=== PATIENT | female | born 1975 | race Caucasian/White ===

== ENCOUNTER 2019-03-26 11:28 | Emergency (ER) | payer OTHER ==
[2019-03-26] MEDS: LIDOCAINE 1% (MPF) 5 ML VIAL INFIL (12:11)
[2019-03-26] MEDS: DIAZEPAM 5 MG TAB PO (12:26)
== END 2019-03-26 13:34 | disposition home or self-care (01) ==
LOC: FTE 11:28
DX: N75.1 Abscess of Bartholin's gland (principal)
CPT/HCPCS: 56420; 82962; 99284-25

== ENCOUNTER 2019-04-04 11:30 | Emergency (ER) | payer OTHER ==
[2019-04-04] MEDS: KETOROLAC 60 MG INJ IM (12:47)
[2019-04-04] MEDS: DEXAMETHASONE 10 MG/ML 1 ML INJ IM (12:47)
== END 2019-04-04 13:35 | disposition home or self-care (01) ==
LOC: FTE 13:35
DX: M54.31 Sciatica, right side (principal); M54.32 Sciatica, left side
CPT/HCPCS: 81025; 82962; 96372; 99284-25

== ENCOUNTER 2019-04-05 19:43 | Inpatient (IN) | payer OTHER ==
[2019-04-05 22:34] LABS: ADD MAN DIFF? NO
[2019-04-05 22:36] LABS: BASOPHIL # 0.1 10^3/ul (0.0-0.1); BASOPHILS % 0.4 % (0.0-2.0); EOSINOPHILS % 0.1 % (0.0-7.0); HEMOGLOBIN 11.8 g/dl (12.0-16.0); LYMPHOCYTES # 3.2 10^3/ul (0.8-2.9); LYMPHOCYTES % 22.2 % (15.0-51.0); MEAN CORPUSCULAR HGB CONC 33.7 g/dl (32.0-37.0); MEAN CORPUSCULAR VOLUME 83.1 fl (82.0-101.0); MEAN PLATELET VOLUME 10.9 fl (7.4-10.4); MONOCYTE # 0.8 10^3/ul (0.3-0.9); MONOCYTES % 5.7 % (0.0-11.0); NEUTROPHIL # 10.3 10^3/ul (1.6-7.5); NEUTROPHILS % 70.8 % (39.0-77.0); PLATELET COUNT 223 10^3/UL (140-415); RED BLOOD COUNT 4.21 10^6/ul (4.20-5.40); RED CELL DISTRIBUTION WIDTH 13.7 % (11.5-14.5)
[2019-04-05 22:36] LABS: WHITE BLOOD COUNT 14.5 10^3/ul (4.8-10.8)
[2019-04-05 22:55] LABS: ANION GAP 8 (5-13); BLOOD UREA NITROGEN 19 mg/dl (7-20); CALCIUM 9.1 mg/dl (8.4-10.2); CARBON DIOXIDE 22 mmol/L (21-31); CHLORIDE 111 mmol/L (97-110); CREATININE 0.88 mg/dl (0.44-1.00); Estimated GFR > 60 mL/min (>60); GLUCOSE 118 mg/dl (70-220); INR 0.94; POTASSIUM 3.9 mmol/L (3.5-5.1); PROTIME 12.7 Sec (11.9-14.9); SODIUM 141 mmol/L (135-144)
[2019-04-05 23:06] LABS: TROPONIN-I < 0.012 ng/ml (0.000-0.120)
[2019-04-05] MEDS: morphine 4 MG/ML VIAL IV (23:11)
[2019-04-05] MEDS: DEXAMETHASONE 4 MG/ML 1 ML INJ IV (23:11)
[2019-04-05] MEDS: ONDANSETRON 4 MG INJ IV (23:11)
[2019-04-06] MEDS ORDERED: ONDANSETRON 4 MG INJ IV (07:00)
[2019-04-06] MEDS: DEXAMETHASONE 4 MG TAB PO ×4 (08:46→23:19)
[2019-04-06] MEDS: KETOROLAC 30 MG INJ IV (08:48)
[2019-04-06] MEDS: morphine 2 MG INJ IV ×5 (11:09→23:20)
[2019-04-06 12:58] LABS: ADD UMIC YES; UR ASCORBIC ACID NEGATIVE (NEGATIVE); UR BACTERIA FEW /HPF (NONE SEEN); UR BILIRUBIN (Dip) NEGATIVE (NEGATIVE); UR BLOOD (Dip) 1+ mg/dL (NEGATIVE); UR CLARITY CLOUDY (CLEAR); UR COLOR YELLOW (YELLOW); UR GLUCOSE (Dip) NEGATIVE (NEGATIVE); UR KETONES (Dip) NEGATIVE (NEGATIVE); UR LEUKOCYTE ESTERASE (Dip) 2+ Leu/ul (NEGATIVE); UR NITRITE (Dip) NEGATIVE (NEGATIVE); UR RBC 2 /HPF (0-5); UR SPECIFIC GRAVITY (Dip) 1.023 (1.003-1.030); UR SQUAMOUS EPITHELIAL CELL MODERATE /HPF (FEW); UR TOTAL PROTEIN (Dip) NEGATIVE (NEGATIVE); UR UROBILINOGEN (Dip) 1+ mg/dL (NEGATIVE); UR WBC 14 /HPF (0-5)
[2019-04-06 13:14] LABS: AMPHETAMINE/METHAMPHETAMINE Negative (NEGATIVE); BARBITURATES Negative (NEGATIVE); BENZODIAZEPINES Negative (NEGATIVE); CANNABINOIDS Negative (NEGATIVE); COCAINE Negative (NEGATIVE)
[2019-04-06 13:18] LABS: OPIATES Positive (NEGATIVE)
[2019-04-06 14:00] LABS: C-REACTIVE PROTEIN 0.7 mg/dl (0.0-0.9)
[2019-04-06 14:25] LABS: ERYTHROCYTE SEDIMENTATION RATE 10 mm/Hr (0-20)
[2019-04-06] MEDS: ACETAMINOPHEN 500 MG TAB PO (15:13)
[2019-04-06] MEDS: PANTOPRAZOLE (EC) 40 MG TAB PO (18:04)
[2019-04-07] MEDS: morphine 2 MG INJ IV ×7 (04:00→21:22)
[2019-04-07 05:37] LABS: ADD MAN DIFF? NO
[2019-04-07] MEDS: PANTOPRAZOLE (EC) 40 MG TAB PO (05:43)
[2019-04-07] MEDS: DEXAMETHASONE 4 MG TAB PO ×4 (05:43→23:54)
[2019-04-07 05:45] LABS: BASOPHILS % 0.1 % (0.0-2.0); HEMATOCRIT 36.7 % (37.0-47.0); HEMOGLOBIN 12.1 g/dl (12.0-16.0); LYMPHOCYTES # 1.3 10^3/ul (0.8-2.9); LYMPHOCYTES % 9.9 % (15.0-51.0); MEAN CORPUSCULAR HEMOGLOBIN 27.4 pg (29.0-33.0); MEAN PLATELET VOLUME 11.7 fl (7.4-10.4); MONOCYTE # 0.4 10^3/ul (0.3-0.9); NEUTROPHIL # 11.6 10^3/ul (1.6-7.5); PLATELET COUNT 224 10^3/UL (140-415); RED BLOOD COUNT 4.42 10^6/ul (4.20-5.40); RED CELL DISTRIBUTION WIDTH 13.6 % (11.5-14.5)
[2019-04-07 05:45] LABS: WHITE BLOOD COUNT 13.5 10^3/ul (4.8-10.8)
[2019-04-07 05:52] LABS: ALANINE AMINOTRANSFERASE 35 IU/L (13-69); ALBUMIN 3.8 g/dl (3.3-4.9); ALBUMIN/GLOBULIN RATIO 1.26; ALKALINE PHOSPHATASE 52 IU/L (42-121); ANION GAP 7 (5-13); ASPARTATE AMINO TRANSFERASE 22 IU/L (15-46); BILIRUBIN,INDIRECT 0.3 mg/dl (0-1.1); BILIRUBIN,TOTAL 0.3 mg/dl (0.2-1.3); BLOOD UREA NITROGEN 20 mg/dl (7-20); CALCIUM 9.3 mg/dl (8.4-10.2); CARBON DIOXIDE 25 mmol/L (21-31); CHLORIDE 108 mmol/L (97-110); CREATININE 0.88 mg/dl (0.44-1.00); Estimated GFR > 60 mL/min (>60); GLUCOSE 239 mg/dl (70-220); SODIUM 140 mmol/L (135-144); TOTAL PROTEIN 6.8 g/dl (6.1-8.1)
[2019-04-07 06:02] LABS: PHOSPHORUS 3.8 mg/dl (2.5-4.9)
[2019-04-07 06:02] LABS: MAGNESIUM 2.2 mg/dl (1.7-2.5)
[2019-04-07] MEDS: ACETAMINOPHEN 500 MG TAB PO ×2 (11:23→18:10)
[2019-04-07] MEDS: KETOROLAC 30 MG INJ IV (16:37)
[2019-04-07] MEDS: HEPARIN 5,000 UNIT/1 ML VIAL SC (21:05)
[2019-04-08] MEDS: morphine 2 MG INJ IV ×6 (02:15→16:38)
[2019-04-08] MEDS: DEXAMETHASONE 4 MG TAB PO (05:14)
[2019-04-08] MEDS: PANTOPRAZOLE (EC) 40 MG TAB PO (05:14)
[2019-04-08 07:40] LABS: ADD MAN DIFF? NO
[2019-04-08 07:46] LABS: WHITE BLOOD COUNT 14.9 10^3/ul (4.8-10.8)
[2019-04-08 07:46] LABS: BASOPHILS % 0.2 % (0.0-2.0); HEMATOCRIT 39.8 % (37.0-47.0); HEMOGLOBIN 13.3 g/dl (12.0-16.0); LYMPHOCYTES # 1.3 10^3/ul (0.8-2.9); LYMPHOCYTES % 8.9 % (15.0-51.0); MEAN CORPUSCULAR HEMOGLOBIN 27.8 pg (29.0-33.0); MEAN CORPUSCULAR HGB CONC 33.4 g/dl (32.0-37.0); MEAN CORPUSCULAR VOLUME 83.3 fl (82.0-101.0); MONOCYTE # 0.6 10^3/ul (0.3-0.9); MONOCYTES % 4.1 % (0.0-11.0); NEUTROPHIL # 12.7 10^3/ul (1.6-7.5); NEUTROPHILS % 84.9 % (39.0-77.0); PLATELET COUNT 226 10^3/UL (140-415); RED BLOOD COUNT 4.78 10^6/ul (4.20-5.40); RED CELL DISTRIBUTION WIDTH 13.4 % (11.5-14.5)
[2019-04-08 08:02] LABS: MAGNESIUM 2.2 mg/dl (1.7-2.5)
[2019-04-08 08:07] LABS: ALANINE AMINOTRANSFERASE 33 IU/L (13-69); ALBUMIN 3.9 g/dl (3.3-4.9); ALBUMIN/GLOBULIN RATIO 1.11; ALKALINE PHOSPHATASE 59 IU/L (42-121); ANION GAP 9 (5-13); ASPARTATE AMINO TRANSFERASE 17 IU/L (15-46); BILIRUBIN,INDIRECT 0.4 mg/dl (0-1.1); BILIRUBIN,TOTAL 0.4 mg/dl (0.2-1.3); BLOOD UREA NITROGEN 27 mg/dl (7-20); CALCIUM 9.2 mg/dl (8.4-10.2); CARBON DIOXIDE 26 mmol/L (21-31); CHLORIDE 104 mmol/L (97-110); CREATININE 0.96 mg/dl (0.44-1.00); Estimated GFR > 60 mL/min (>60); GLUCOSE 221 mg/dl (70-220); POTASSIUM 4.3 mmol/L (3.5-5.1); SODIUM 139 mmol/L (135-144); TOTAL PROTEIN 7.4 g/dl (6.1-8.1)
[2019-04-08] MEDS ORDERED: METHYLPREDNISOLONE (MEDROL) DOSE PACK PO (09:30)
[2019-04-08] MEDS: IBUPROFEN 800 MG TAB NGT ×2 (10:17→14:33)
[2019-04-08] MEDS: GABAPENTIN 300 MG CAP GTB (10:17)
[2019-04-08] MEDS: HEPARIN 5,000 UNIT/1 ML VIAL SC (10:18)
[2019-04-08] MEDS: METHYLPREDNISOLONE 4 MG TAB PO (10:19)
[2019-04-09] MEDS ORDERED: METHYLPREDNISOLONE 4 MG TAB PO ×4 (07:30→21:00)
[2019-04-10] MEDS ORDERED: METHYLPREDNISOLONE 4 MG TAB PO (21:00)
== END 2019-04-08 17:23 | disposition home or self-care (01) | DRG 552 ==
LOC: PP2 04-06 02:20 → E/R 19:43 → PP2 04-06 00:51
DX: M51.17 Intervertebral disc disorders with radiculopathy, lumbosacral region (principal); Z68.42 Body mass index [BMI] 45.0-49.9, adult; M48.07 Spinal stenosis, lumbosacral region; R20.0 Anesthesia of skin; E66.01 Morbid (severe) obesity due to excess calories
CPT/HCPCS: 36415; 70450; 71045; 72131; 80048; 80053; 80307; 81001; 81025; 83735; 84100; 84484; 85025; 85610; 85651; 85730; 86140; 93005; 96374; 96375; 97116; 97162; 99285-25; G0378